=== PATIENT | female | born 1980 | race African-American/Black ===

== ENCOUNTER 2019-09-12 14:28 | Emergency (ER) | payer BC ==
[~2019-09-12] VITALS: Ht 167.6 cm; Wt 95.3 kg
[2019-09-12] MEDS ORDERED: NORCO 5-325 TA1 EAC1 PO (15:55)
[2019-09-12 16:20] VITALS: BP 162/95
== END 2019-09-12 16:20 | disposition home or self-care (01) ==
LOC: ER 14:28
DX: S63.256A Unspecified dislocation of right little finger, initial encounter (principal); W18.39XA Other fall on same level, initial encounter; Y93.44 Activity, trampolining; Y92.89 Other specified places as the place of occurrence of the external cause; Y99.8 Other external cause status